=== PATIENT | male | born 1970 ===

== ENCOUNTER 2023-08-14 08:28 | Inpatient (IN) | payer OTHER, SELFPAY ==
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
[2023-08-14 09:42] VITALS: BP 127/84; PULSE 69; RESP 14; TEMP 36.3; O2SAT 97
[2023-08-14] MEDS: Gabapentin 600 MG TABLET PO ×3 (09:48→22:04)
[2023-08-14] MEDS: diazePAM 5 MG TABLET PO (09:49)
[2023-08-14] MEDS: Thiamine HCL 100 MG TABLET PO (09:49)
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
[2023-08-14 12:56] VITALS: BMI 28.7
[2023-08-14] MEDS: DULoxetine HCl 20 MG CAPSULE.DR PO (13:56)
[2023-08-14] MEDS: Omeprazole 20 MG CAPSULE.DR PO (13:56)
[2023-08-14] MEDS: TiZANidine HCL 4 MG TABLET 2 MG PO (15:14)
[2023-08-14] MEDS: Acamprosate Calcium 333 MG TABLET.DR 666 MG PO ×2 (15:14→22:03)
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
[2023-08-14 18:00] VITALS: BP 142/65; PULSE 71; TEMP 36.3; O2SAT 98
[2023-08-14] MEDS: traZODone HCL 100 MG TABLET PO (22:04)
[2023-08-15] MEDS: Omeprazole 20 MG CAPSULE.DR PO (05:48)
[2023-08-15 07:00] VITALS: BMI 28.6
[2023-08-15 08:10] VITALS: BP 129/75; PULSE 67; RESP 16; TEMP 36.6; O2SAT 99
[2023-08-15] MEDS: Acamprosate Calcium 333 MG TABLET.DR 666 MG PO ×3 (08:13→21:47)
[2023-08-15] MEDS: Thiamine HCL 100 MG TABLET PO (08:13)
[2023-08-15] MEDS: Gabapentin 600 MG TABLET PO ×3 (08:13→21:47)
[2023-08-15] MEDS: DULoxetine HCl 20 MG CAPSULE.DR PO (08:14)
[2023-08-15] MEDS: diazePAM 5 MG TABLET PO ×2 (08:19→13:31)
[2023-08-15] MEDS: hydrOXYzine HCL 25 MG TABLET PO ×2 (08:23→19:35)
[2023-08-15 08:53] LABS: Estimated Average Glucose 97 mg/dL
[2023-08-15 09:11] LABS: Alanine Aminotransferase 27 U/L (0-40); Albumin Level 4.4 g/dL (3.5-5.0); Alkaline Phosphatase 34 U/L (39-117); Anion Gap 14 (12-20); Aspartate Amino Transferase 21 U/L (5-37); Bilirubin Total 0.2 mg/dL (0.0-1.0); Blood Urea Nitrogen 20 mg/dL (9-16); Calcium 9.7 mg/dL (8.4-10.2); Carbon Dioxide 26 mmol/L (22-29); Chloride 103 mmol/L (96-108); Cholesterol 206 mg/dL (<200); Creatinine Clr Calc Pharmacy 97.1; Estimated Glomerular Filt Rate > 60; Glucose Fasting 82 mg/dL (60-99); HDL Cholesterol 52 mg/dL (>40); Potassium 4.3 mmol/L (3.3-5.1); Sodium 139 mmol/L (135-145); Total Protein 7.8 g/dL (6.5-8.0); Triglycerides 472 mg/dL (<150)
[2023-08-15 09:27] LABS: Thyroid Stimulating Hormone 2.37 uIU/mL (0.32-4.0)
[2023-08-15 09:36] LABS: Folate 10.2 ng/mL (> or = 4.0)
[2023-08-15 15:05] LABS: Vitamin B12 479 pg/mL (200-900)
--- NOTE | 2023-08-15 15:47 | HO.PSYCHPN ---
Subjective Subjective Date of Service: 08/15/23 Reason For Visit: SI Subjective Notes: Conditional Voluntary Interim History: Pt reports he had a great night, slept like a rock. He reports having much needed rest now that he has been staying in a tent. He also reports less pain related to neuropathy. He reports mood is better. He reports he is open to go to [facility] for recovery. No signs of alcohol withdrawal, VS stable. Fully oriented. Review of Systems Review of Systems Intermittent left sided abdominal pain Chronic knee and lower back pain No chest pain/pressure, palpitations Denies shortness of breath No fever, chills, nausea, vomiting, diarrhea Mental Status Exam Mental Status Exam Narrative: Appearance: wearing hospital gown, fair hygiene, in NAD Behavior: cooperative Psychomotor: no agitation or retardation noted Speech: clear, normal rate/rhythm/volume, spontaneous TP: linear TC: feeling better Mood: Affect: congruent, brightens at times SI:passive HI: none VH/AH: none Delusions: none Insight/judgment: fair x 2 Memory/cog: alert, oriented x 3. grossly intact to conversational testing. Diagnostics Vital Signs (24Hr): Vital Signs - 24 hr 08/14/23 18:00 08/15/23 08:10 Temperature 97.4 F 97.9 F Pulse Rate 71 67 Respiratory Rate 16 Blood Pressure 142/65 H 129/75 Pulse Oximetry 98 99 Oxygen Delivery Method Room Air BMI result Body Mass Index 28.6 Labs 08/15/23 08:09 Labs: Laboratory Results - last 48 hr 08/15/23 08:09 Sodium 139 Potassium 4.3 Chloride 103 Carbon Dioxide 26 Anion Gap 14 BUN 20 H Creatinine 1.03 Estim Creat Clear Calc 97.1 Estimated GFR > 60 Fasting Glucose 82 Estimat Average Glucose 97 Hemoglobin A1c % 5.0 Calcium 9.7 Total Bilirubin 0.2 AST 21 ALT 27 Alkaline Phosphatase 34 L Total Protein 7.8 Albumin 4.4 Triglycerides 472 H Cholesterol 206 H LDL Cholesterol, Calc TNP HDL Cholesterol 52 Vitamin B12 479 Folate 10.2 TSH 2.37 Medications Medications Current Medications Acamprosate (Acamprosate Calcium 333 Mg Tablet.) 666 mg PO TID [facility] Last Admin: 08/15/23 14:52 Dose: 666 mg Acetaminophen (Acetaminophen 325 Mg Tablet) 650 mg PO Q6H PRN PRN Reason: Headache/Pain Mild Scale (1-3) Al Hydroxide/Mg Hydroxide (Magnesium Hydrox/Alum Hydrox 30 Ml Oral.Susp) 30 ml PO Q6H PRN PRN Reason: Heartburn/Nausea Albuterol Sulfate (Albuterol Sulfate 90 Mcg 8 Gm Inhaler) 2 puff INHALE RQ6H PRN PRN Reason: Shortness of Breath/Wheezing Capsaicin (Capsaicin 0.025% Cream 60 Gm Tube) 1 appl TOPICAL QID PRN; Protocol PRN Reason: Pain, Moderate(Pain Scale 4-6) Diazepam (Diazepam 5 Mg Tablet) 5 mg PO Q4H PRN PRN Reason: ciwa 7-12 Last Admin: 08/15/23 13:31 Dose: 5 mg Diazepam (Diazepam 5 Mg Tablet) 10 mg PO Q4H PRN PRN Reason: ciwa 13-17 Diazepam (Diazepam 5 Mg Tablet) 15 mg PO Q4H PRN PRN Reason: ciwa >17, call Duloxetine HCl (Duloxetine Hcl 20 Mg Capsule.) 20 mg PO DAILY [facility] Last Admin: 08/15/23 08:14 Dose: 20 mg Gabapentin (Gabapentin 600 Mg Tablet) 600 mg PO TID [facility] Last Admin: 08/15/23 14:52 Dose: 600 mg Hydroxyzine HCl (Hydroxyzine Hcl 25 Mg Tablet) 25 mg PO Q6H PRN PRN Reason: Anxiety Last Admin: 08/15/23 08:23 Dose: 25 mg Lidocaine (Lidocaine 4 % Patch Adh..Patch) 1 patch TRANSDERMA DAILY [facility]; Protocol Last Admin: 08/15/23 13:45 Dose: Not Given Magnesium Hydroxide (Milk Of Magnesia 30 Ml Oral.Susp) 30 ml PO DAILY PRN PRN Reason: Constipation Nicotine (Nicotine 14 Mg Patch.Td24) 14 mg TRANSDERMA DAILY PRN PRN Reason: nicotine cravings Nicotine Polacrilex (Nicotine Polacrilex 2 Mg Gum) 2 mg BUCCAL Q2H PRN PRN Reason: Nicotine Cravings Omeprazole (Omeprazole 20 Mg Capsule.) 20 mg PO DAILY@0700 [facility] Last Admin: 08/15/23 05:48 Dose: 20 mg Thiamine HCl (Thiamine Hcl 100 Mg Tablet) 100 mg PO DAILY [facility] Last Admin: 08/15/23 08:13 Dose: 100 mg Tizanidine HCl (Tizanidine Hcl 4 Mg Tablet) 2 mg PO Q12H PRN PRN Reason: muscle spasm Last Admin: 08/14/23 15:14 Dose: 2 mg Trazodone HCl (Trazodone Hcl 50 Mg Tablet) 50 mg PO BEDTIME PRN PRN Reason: Insomnia Trazodone HCl (Trazodone Hcl 100 Mg Tablet) 100 mg PO BEDTIME [facility] Last Admin: 08/14/23 22:04 Dose: 100 mg Allergies Allergies Allergy/AdvReac Type Severity Reaction Status Date / Time No Known Allergies Allergy Verified 08/14/23 09:26 Assessment & Plan Assessment & Plan (1) MDD (major depressive disorder), recurrent episode, moderate: Status: Acute Code(s): F33.1 - Major depressive disorder, recurrent, moderate (2) Alcohol use disorder, moderate, dependence: Status: Acute Code(s): F10.20 - Alcohol dependence, uncomplicated Plan Mr. Metzger is a 52 year-old male w/ hx of MDD, alcohol use disorder exacerbated by multiple psychosocial stressors including lack of stable housing and financial stress. PLAN 08/15 will continue increasing cymbalta for depression and may have some neuropathic pain relief. Increase cymbalta to 30mg po daily. start naltrexone 50mg po daily tomorrow as well to decrease alcohol use. CIWA score today 11, 5. Will continue ciwa for now and reassess. Reason for continued inpatient stay Substantial Risk for: harm to self Time Spent With Patient Time: Total time managing care of this patient today ____ minutes.
[2023-08-15 19:55] VITALS: BP 140/75; PULSE 77; RESP 15; TEMP 36.7; O2SAT 99
[2023-08-15] MEDS: traZODone HCL 100 MG TABLET PO (21:47)
[2023-08-15] MEDS: TiZANidine HCL 4 MG TABLET 2 MG PO (21:47)
[2023-08-16] MEDS: Acetaminophen 325 MG TABLET 650 MG PO ×4 (03:51→21:05)
[2023-08-16] MEDS: Capsaicin 0.025% Cream 60 GM TUBE 1 APPL TOPICAL ×2 (03:53→11:38)
[2023-08-16] MEDS: hydrOXYzine HCL 25 MG TABLET PO ×3 (03:56→21:06)
[2023-08-16] MEDS: Omeprazole 20 MG CAPSULE.DR PO (06:27)
[2023-08-16 07:00] VITALS: BP 121/75; PULSE 76; RESP 16; TEMP 36.3; O2SAT 97
[2023-08-16] MEDS: DULoxetine HCl 30 MG CAPSULE.DR PO (08:48)
[2023-08-16] MEDS: Acamprosate Calcium 333 MG TABLET.DR 666 MG PO ×3 (08:48→21:05)
[2023-08-16] MEDS: Gabapentin 600 MG TABLET PO (08:48)
[2023-08-16] MEDS: Naltrexone HCl 50 MG TABLET PO (08:48)
[2023-08-16] MEDS: Thiamine HCL 100 MG TABLET PO (08:49)
--- NOTE | 2023-08-16 09:43 | P.PNPSI_ITS ---
Subjective Subjective Date of Service: 08/16/23 Reason For Visit: SI Subjective Notes: Conditional Voluntary Interim History: Pt reports he is losing hope due to uncertainty of getting into a [facility] program. Pt slept throught the night. He reports more pain today, although yesterday he was reporting much relief with current medications. We discussed re-starting meloxican- although consider interaction with aspirin and increase risk for bleeding. We also discussed increasing gabapentin to 800mg po TID. Continue titration of cymbalta. He denies SI and presents as future oriented but at times may report conditional suicidality to finding place to go. Pt has been visible on the unit, attends assigned groups. No behavioral concerns. Review of Systems Review of Systems Intermittent left sided abdominal pain Chronic knee and lower back pain No chest pain/pressure, palpitations Denies shortness of breath No fever, chills, nausea, vomiting, diarrhea Mental Status Exam Mental Status Exam Narrative: Appearance: wearing hospital gown, fair hygiene, in NAD Behavior: cooperative Psychomotor: no agitation or retardation noted Speech: clear, normal rate/rhythm/volume, spontaneous TP: linear TC: feeling better Mood: Affect: congruent, brightens at times SI:passive HI: none VH/AH: none Delusions: none Insight/judgment: fair x 2 Memory/cog: alert, oriented x 3. grossly intact to conversational testing. Diagnostics Vital Signs (24Hr): Vital Signs - 24 hr 08/15/23 19:55 08/16/23 07:00 Temperature 98.0 F 97.4 F Pulse Rate 77 76 Respiratory Rate 15 16 Blood Pressure 140/75 H 121/75 Pulse Oximetry 99 97 Oxygen Delivery Method Room Air Room Air BMI result Body Mass Index 28.6 Labs 08/15/23 08:09 Labs: Laboratory Results - last 48 hr 08/15/23 08:09 Sodium 139 Potassium 4.3 Chloride 103 Carbon Dioxide 26 Anion Gap 14 BUN 20 H Creatinine 1.03 Estim Creat Clear Calc 97.1 Estimated GFR > 60 Fasting Glucose 82 Estimat Average Glucose 97 Hemoglobin A1c % 5.0 Calcium 9.7 Total Bilirubin 0.2 AST 21 ALT 27 Alkaline Phosphatase 34 L Total Protein 7.8 Albumin 4.4 Triglycerides 472 H Cholesterol 206 H LDL Cholesterol, Calc TNP HDL Cholesterol 52 Vitamin B12 479 Folate 10.2 TSH 2.37 Medications Medications Current Medications Acamprosate (Acamprosate Calcium 333 Mg Tablet.) 666 mg PO TID [facility] Last Admin: 08/16/23 08:48 Dose: 666 mg Acetaminophen (Acetaminophen 325 Mg Tablet) 650 mg PO Q6H PRN PRN Reason: Headache/Pain Mild Scale (1-3) Last Admin: 08/16/23 03:51 Dose: 650 mg Al Hydroxide/Mg Hydroxide (Magnesium Hydrox/Alum Hydrox 30 Ml Oral.Susp) 30 ml PO Q6H PRN PRN Reason: Heartburn/Nausea Albuterol Sulfate (Albuterol Sulfate 90 Mcg 8 Gm Inhaler) 2 puff INHALE RQ6H PRN PRN Reason: Shortness of Breath/Wheezing Capsaicin (Capsaicin 0.025% Cream 60 Gm Tube) 1 appl TOPICAL QID PRN; Protocol PRN Reason: Pain, Moderate(Pain Scale 4-6) Last Admin: 08/16/23 03:53 Dose: 1 appl Diazepam (Diazepam 5 Mg Tablet) 5 mg PO Q4H PRN PRN Reason: ciwa 7-12 Last Admin: 08/15/23 13:31 Dose: 5 mg Diazepam (Diazepam 5 Mg Tablet) 10 mg PO Q4H PRN PRN Reason: ciwa 13-17 Diazepam (Diazepam 5 Mg Tablet) 15 mg PO Q4H PRN PRN Reason: ciwa >17, call Duloxetine HCl (Duloxetine Hcl 30 Mg Capsule.) 30 mg PO DAILY [facility] Last Admin: 08/16/23 08:48 Dose: 30 mg Gabapentin (Gabapentin 600 Mg Tablet) 600 mg PO TID [facility] Last Admin: 08/16/23 08:48 Dose: 600 mg Hydroxyzine HCl (Hydroxyzine Hcl 25 Mg Tablet) 25 mg PO Q6H PRN PRN Reason: Anxiety Last Admin: 08/16/23 03:56 Dose: 25 mg Lidocaine (Lidocaine 4 % Patch Adh..Patch) 1 patch TRANSDERMA DAILY [facility]; Protocol Last Admin: 08/15/23 13:45 Dose: Not Given Magnesium Hydroxide (Milk Of Magnesia 30 Ml Oral.Susp) 30 ml PO DAILY PRN PRN Reason: Constipation Naltrexone HCl (Naltrexone Hcl 50 Mg Tablet) 50 mg PO DAILY [facility] Last Admin: 08/16/23 08:48 Dose: 50 mg Nicotine (Nicotine 14 Mg Patch.Td24) 14 mg TRANSDERMA DAILY PRN PRN Reason: nicotine cravings Nicotine Polacrilex (Nicotine Polacrilex 2 Mg Gum) 2 mg BUCCAL Q2H PRN PRN Reason: Nicotine Cravings Omeprazole (Omeprazole 20 Mg Capsule.Dr) 20 mg PO DAILY@0700 [facility] Last Admin: 08/16/23 06:27 Dose: 20 mg Thiamine HCl (Thiamine Hcl 100 Mg Tablet) 100 mg PO DAILY [facility] Last Admin: 08/16/23 08:49 Dose: 100 mg Tizanidine HCl (Tizanidine Hcl 4 Mg Tablet) 2 mg PO Q12H PRN PRN Reason: muscle spasm Last Admin: 08/15/23 21:47 Dose: 2 mg Trazodone HCl (Trazodone Hcl 50 Mg Tablet) 50 mg PO BEDTIME PRN PRN Reason: Insomnia Trazodone HCl (Trazodone Hcl 100 Mg Tablet) 100 mg PO BEDTIME [facility] Last Admin: 08/15/23 21:47 Dose: 100 mg Allergies Allergies Allergy/AdvReac Type Severity Reaction Status Date / Time No Known Allergies Allergy Verified 08/14/23 09:26 Assessment & Plan Assessment & Plan (1) MDD (major depressive disorder), recurrent episode, moderate: Status: Acute Code(s): F33.1 - Major depressive disorder, recurrent, moderate (2) Alcohol use disorder, moderate, dependence: Status: Acute Code(s): F10.20 - Alcohol dependence, uncomplicated Plan Mr. Metzger is a 52 year-old male w/ hx of MDD, alcohol use disorder exacerbated by multiple psychosocial stressors including lack of stable housing and financial stress. PLAN 08/15 will continue increasing cymbalta for depression and may have some neuropathic pain relief. Increase cymbalta to 30mg po daily. start naltrexone 50mg po daily tomorrow as well to decrease alcohol use. CIWA score today 11, 5. Will continue ciwa for now and reassess. 08/16 increase gabapetin to 800mg po TID. increase cymbalta to 60mg po daily. start meloxican 100mg po BID. Reason for continued inpatient stay Substantial Risk for: harm to self Time Spent With Patient Time: Total time managing care of this patient today ____ minutes.
[2023-08-16] MEDS: Lidocaine 4 % Patch ADH..PATCH 1 PATCH TRANSDERMA (11:37)
[2023-08-16] MEDS: Celecoxib 100 MG CAPSULE PO ×2 (11:38→21:05)
[2023-08-16] MEDS: Gabapentin 400 MG CAPSULE 800 MG PO ×2 (16:37→21:06)
[2023-08-16 20:40] VITALS: BP 133/82; PULSE 82; RESP 16; TEMP 36.3; O2SAT 98
[2023-08-16] MEDS: TiZANidine HCL 4 MG TABLET 2 MG PO (21:06)
[2023-08-16] MEDS: traZODone HCL 100 MG TABLET PO (21:11)
[2023-08-17] MEDS: Omeprazole 20 MG CAPSULE.DR PO (06:31)
[2023-08-17] MEDS: Acetaminophen 325 MG TABLET 650 MG PO ×3 (08:03→21:33)
[2023-08-17] MEDS: Thiamine HCL 100 MG TABLET PO (08:03)
[2023-08-17] MEDS: Acamprosate Calcium 333 MG TABLET.DR 666 MG PO ×3 (08:03→21:32)
[2023-08-17] MEDS: DULoxetine HCl 60 MG CAPSULE.DR PO (08:03)
[2023-08-17] MEDS: Gabapentin 400 MG CAPSULE 800 MG PO ×3 (08:03→21:32)
[2023-08-17] MEDS: Celecoxib 100 MG CAPSULE PO ×2 (08:04→21:32)
[2023-08-17] MEDS: Naltrexone HCl 50 MG TABLET PO (08:04)
[2023-08-17 08:31] VITALS: BP 128/73; PULSE 72; RESP 20; TEMP 36.3; O2SAT 97
[2023-08-17] MEDS: Lidocaine 4 % Patch ADH..PATCH 1 PATCH TRANSDERMA (09:48)
[2023-08-17] MEDS: Capsaicin 0.025% Cream 60 GM TUBE 1 APPL TOPICAL (11:20)
[2023-08-17] MEDS: hydrOXYzine HCL 25 MG TABLET PO (14:55)
[2023-08-17 18:51] VITALS: BP 129/78; PULSE 79
[2023-08-17] MEDS: traZODone HCL 100 MG TABLET PO (21:34)
[2023-08-17] MEDS: TiZANidine HCL 4 MG TABLET 2 MG PO (21:34)
--- NOTE | 2023-08-17 22:36 | HO.PSYCHPN ---
Subjective Subjective Date of Service: 08/17/23 Reason For Visit: SI Subjective Notes: Conditional Voluntary Interim History: I'm alright Patient presents as blunted, guarded but appropriate. No behavioral issues. Mostly keeps to himself. Per staff has been going to groups. Pt says he is hoping for [facility] and says SW will be calling to check on status at [facility] on Saturday. Reports depression persists and asking if his doctor had increased the dose of duloxetine to 60 mg (which he had done). Denies any adverse effects from medications, is med compliant. Denies h/h/SI not lately . No HI, AH, VH on inquiry. MSE:? Alert, oriented, in no acute distress. Ambulates with walker. Casually dressed. Calm, cooperative, forthcoming. Eye contact. Mood depressed, affect constricted. Normal speech. No evidence of thought disorder. Thought content relevant to stressors. No SI or HI on inquiry. No evidence of harley or psychosis. Cognition grossly intact. Sensorium clear. Insight and judgment fair. Medication Compliance: Yes Side effects from medications: No Diagnostics Vital Signs (24Hr): Vital Signs - 24 hr 08/17/23 08:31 08/17/23 18:51 Temperature 97.3 F Pulse Rate 72 79 Respiratory Rate 20 Blood Pressure 128/73 129/78 Pulse Oximetry 97 Oxygen Delivery Method Room Air BMI result Body Mass Index 28.6 Labs 08/15/23 08:09 Medications Medications Current Medications Acamprosate (Acamprosate Calcium 333 Mg Tablet.) 666 mg PO TID [facility] Last Admin: 08/17/23 21:32 Dose: 666 mg Acetaminophen (Acetaminophen 325 Mg Tablet) 650 mg PO TID [facility] Last Admin: 08/17/23 21:33 Dose: 650 mg Al Hydroxide/Mg Hydroxide (Magnesium Hydrox/Alum Hydrox 30 Ml Oral.Susp) 30 ml PO Q6H PRN PRN Reason: Heartburn/Nausea Albuterol Sulfate (Albuterol Sulfate 90 Mcg 8 Gm Inhaler) 2 puff INHALE RQ6H PRN PRN Reason: Shortness of Breath/Wheezing Capsaicin (Capsaicin 0.025% Cream 60 Gm Tube) 1 appl TOPICAL QID PRN; Protocol PRN Reason: Pain, Moderate(Pain Scale 4-6) Last Admin: 08/17/23 11:20 Dose: 1 appl Celecoxib (Celecoxib 100 Mg Capsule) 100 mg PO BID [facility] Last Admin: 08/17/23 21:32 Dose: 100 mg Duloxetine HCl (Duloxetine Hcl 60 Mg Capsule.Dr) 60 mg PO DAILY [facility] Last Admin: 08/17/23 08:03 Dose: 60 mg Gabapentin (Gabapentin 400 Mg Capsule) 800 mg PO TID [facility] Last Admin: 08/17/23 21:32 Dose: 800 mg Hydroxyzine HCl (Hydroxyzine Hcl 25 Mg Tablet) 25 mg PO Q6H PRN PRN Reason: Anxiety Last Admin: 08/17/23 14:55 Dose: 25 mg Lidocaine (Lidocaine 4 % Patch Adh..Patch) 1 patch TRANSDERMA DAILY [facility]; Protocol Last Admin: 08/17/23 09:48 Dose: 1 patch Magnesium Hydroxide (Milk Of Magnesia 30 Ml Oral.Susp) 30 ml PO DAILY PRN PRN Reason: Constipation Naltrexone HCl (Naltrexone Hcl 50 Mg Tablet) 50 mg PO DAILY [facility] Last Admin: 08/17/23 08:04 Dose: 50 mg Nicotine (Nicotine 14 Mg Patch.Td24) 14 mg TRANSDERMA DAILY PRN PRN Reason: nicotine cravings Nicotine Polacrilex (Nicotine Polacrilex 2 Mg Gum) 2 mg BUCCAL Q2H PRN PRN Reason: Nicotine Cravings Omeprazole (Omeprazole 20 Mg Capsule.Dr) 20 mg PO DAILY@0700 [facility] Last Admin: 08/17/23 06:31 Dose: 20 mg Thiamine HCl (Thiamine Hcl 100 Mg Tablet) 100 mg PO DAILY [facility] Last Admin: 08/17/23 08:03 Dose: 100 mg Tizanidine HCl (Tizanidine Hcl 4 Mg Tablet) 2 mg PO Q12H PRN PRN Reason: muscle spasm Last Admin: 08/17/23 21:34 Dose: 2 mg Trazodone HCl (Trazodone Hcl 50 Mg Tablet) 50 mg PO BEDTIME PRN PRN Reason: Insomnia Trazodone HCl (Trazodone Hcl 100 Mg Tablet) 100 mg PO BEDTIME [facility] Last Admin: 08/17/23 21:34 Dose: 100 mg Allergies Allergies Allergy/AdvReac Type Severity Reaction Status Date / Time No Known Allergies Allergy Verified 08/14/23 09:26 Assessment & Plan Assessment & Plan (1) MDD (major depressive disorder), recurrent episode, moderate: Status: Acute Code(s): F33.1 - Major depressive disorder, recurrent, moderate (2) Alcohol use disorder, moderate, dependence: Status: Acute Code(s): F10.20 - Alcohol dependence, uncomplicated Plan Mr. Metzger is a 52 year-old male w/ hx of MDD, alcohol use disorder exacerbated by multiple psychosocial stressors including lack of stable housing and financial stress. PLAN 08/15 will continue increasing cymbalta for depression and may have some neuropathic pain relief. Increase cymbalta to 30mg po daily. start naltrexone 50mg po daily tomorrow as well to decrease alcohol use. CIWA score today 11, 5. Will continue ciwa for now and reassess. 08/16 increase gabapetin to 800mg po TID. increase cymbalta to 60mg po daily. start meloxican 100mg po BID. 08/17: increase hydroxyzine to 50 mg q 6 hr Reason for continued inpatient stay Substantial Risk for: inability to function, rapid decompensation and med/psych decompensation Time Spent With Patient Time: Total time managing care of this patient today ____ minutes.
[2023-08-18] MEDS: Omeprazole 20 MG CAPSULE.DR PO (06:28)
[2023-08-18] MEDS: Thiamine HCL 100 MG TABLET PO (07:51)
[2023-08-18] MEDS: Acamprosate Calcium 333 MG TABLET.DR 666 MG PO ×3 (07:51→20:21)
[2023-08-18] MEDS: DULoxetine HCl 60 MG CAPSULE.DR PO (07:51)
[2023-08-18] MEDS: Gabapentin 400 MG CAPSULE 800 MG PO ×3 (07:51→20:21)
[2023-08-18] MEDS: Acetaminophen 325 MG TABLET 650 MG PO ×3 (07:51→20:20)
[2023-08-18] MEDS: Celecoxib 100 MG CAPSULE PO ×2 (07:51→20:22)
[2023-08-18] MEDS: Naltrexone HCl 50 MG TABLET PO (07:52)
[2023-08-18 08:35] VITALS: BP 117/72; PULSE 71; RESP 16; TEMP 35.9; O2SAT 98
[2023-08-18] MEDS: hydrOXYzine HCL 50 MG TABLET PO (10:09)
[2023-08-18] MEDS: Lidocaine 4 % Patch ADH..PATCH 1 PATCH TRANSDERMA (12:27)
[2023-08-18] MEDS: Capsaicin 0.025% Cream 60 GM TUBE 1 APPL TOPICAL (14:31)
[2023-08-18 20:00] VITALS: BP 130/75; PULSE 73; RESP 18; TEMP 36.6; O2SAT 98
[2023-08-18] MEDS: Prazosin HCL 1 MG CAPSULE PO (20:22)
--- NOTE | 2023-08-18 22:36 | P.PNPSI_ITS ---
Subjective Subjective Date of Service: 08/18/23 Reason For Visit: SI Subjective Notes: Conditional Voluntary Interim History: okay Patient found in tv room. Has been watching football all day. Mood less depressed but still low. Anxiety is high. PRN 50 mg hydroxyzine better than 25 mg but only lasts a short time. Having a lot of anxiety, including physical anxiety. Sleep is disrupted, he reports nightmares and flashbacks. Asking for 100 mg hydroxyzine, but agreeable to switching 50 mg hydroxyzine from q 6 hrs to QID dosing. He is agreeable to trial of prazosin BID to target somatic anxiety during day and nightmares/sleep at night. Duloxetine at 60 mg after quick titration, started 2 days ago. Will hold off further titration until later. Asking about pain medications for chronic back and hip pain although acknowledges TID gabapentin has been helpful thus far. Denies SI, HI, AH, VH. ___ Sat: I'm alright Patient presents as blunted, guarded but appropriate. No behavioral issues. Mostly keeps to himself. Per staff has been going to groups. Pt says he is hoping for [facility] and says SW will be calling to check on status at [facility] on Saturday. Reports depression persists and asking if his doctor had increased the dose of duloxetine to 60 mg (which he had done). Denies any adverse effects from medications, is med compliant. Denies h/h/SI not lately . No HI, AH, VH on inquiry. MSE:? Alert, oriented, in no acute distress. Ambulates with walker. Casually dressed. Calm, cooperative, forthcoming. Eye contact. Mood depressed, affect constricted. Normal speech. No evidence of thought disorder. Thought content relevant to stressors. No SI or HI on inquiry. No evidence of harley or psychosis. Cognition grossly intact. Sensorium clear. Insight and judgment fair. Mental Status Exam Mental Status Exam Narrative: Appearance: wearing hospital gown, fair hygiene, in NAD Behavior: cooperative Psychomotor: no agitation or retardation noted Speech: clear, normal rate/rhythm/volume, spontaneous TP: linear TC: feeling better Mood: Affect: congruent, brightens at times SI:passive HI: none VH/AH: none Delusions: none Insight/judgment: fair x 2 Memory/cog: alert, oriented x 3. grossly intact to conversational testing. Diagnostics Vital Signs (24Hr): Vital Signs - 24 hr 08/18/23 08:35 08/18/23 20:00 Temperature 96.7 F L 97.8 F Pulse Rate 71 73 Respiratory Rate 16 18 Blood Pressure 117/72 130/75 Pulse Oximetry 98 98 Oxygen Delivery Method Room Air Room Air BMI result Body Mass Index 28.6 Labs 08/15/23 08:09 Medications Medications Current Medications Acamprosate (Acamprosate Calcium 333 Mg Tablet.) 666 mg PO TID [facility] Last Admin: 08/18/23 20:21 Dose: 666 mg Acetaminophen (Acetaminophen 325 Mg Tablet) 650 mg PO TID [facility] Last Admin: 08/18/23 20:20 Dose: 650 mg Al Hydroxide/Mg Hydroxide (Magnesium Hydrox/Alum Hydrox 30 Ml Oral.Susp) 30 ml PO Q6H PRN PRN Reason: Heartburn/Nausea Albuterol Sulfate (Albuterol Sulfate 90 Mcg 8 Gm Inhaler) 2 puff INHALE RQ6H PRN PRN Reason: Shortness of Breath/Wheezing Capsaicin (Capsaicin 0.025% Cream 60 Gm Tube) 1 appl TOPICAL QID PRN; Protocol PRN Reason: Pain, Moderate(Pain Scale 4-6) Last Admin: 08/18/23 14:31 Dose: 1 appl Celecoxib (Celecoxib 100 Mg Capsule) 100 mg PO BID [facility] Last Admin: 08/18/23 20:22 Dose: 100 mg Duloxetine HCl (Duloxetine Hcl 60 Mg Capsule.) 60 mg PO DAILY [facility] Last Admin: 08/18/23 07:51 Dose: 60 mg Gabapentin (Gabapentin 400 Mg Capsule) 800 mg PO TID [facility] Last Admin: 08/18/23 20:21 Dose: 800 mg Hydroxyzine HCl (Hydroxyzine Hcl 50 Mg Tablet) 50 mg PO QID PRN PRN Reason: Anxiety Lidocaine (Lidocaine 4 % Patch Adh..Patch) 1 patch TRANSDERMA DAILY [facility]; Protocol Last Admin: 08/18/23 12:27 Dose: 1 patch Magnesium Hydroxide (Milk Of Magnesia 30 Ml Oral.Susp) 30 ml PO DAILY PRN PRN Reason: Constipation Naltrexone HCl (Naltrexone Hcl 50 Mg Tablet) 50 mg PO DAILY [facility] Last Admin: 08/18/23 07:52 Dose: 50 mg Nicotine (Nicotine 14 Mg Patch.Td24) 14 mg TRANSDERMA DAILY PRN PRN Reason: nicotine cravings Nicotine Polacrilex (Nicotine Polacrilex 2 Mg Gum) 2 mg BUCCAL Q2H PRN PRN Reason: Nicotine Cravings Omeprazole (Omeprazole 20 Mg Capsule.Dr) 20 mg PO DAILY@0700 [facility] Last Admin: 08/18/23 06:28 Dose: 20 mg Prazosin HCl (Prazosin Hcl 1 Mg Capsule) 1 mg PO BID [facility]; Protocol Last Admin: 08/18/23 20:22 Dose: 1 mg Thiamine HCl (Thiamine Hcl 100 Mg Tablet) 100 mg PO DAILY [facility] Last Admin: 08/18/23 07:51 Dose: 100 mg Tizanidine HCl (Tizanidine Hcl 4 Mg Tablet) 2 mg PO Q12H PRN PRN Reason: muscle spasm Last Admin: 08/17/23 21:34 Dose: 2 mg Trazodone HCl (Trazodone Hcl 50 Mg Tablet) 50 mg PO BEDTIME PRN PRN Reason: Insomnia Trazodone HCl (Trazodone Hcl 100 Mg Tablet) 100 mg PO BEDTIME [facility] Last Admin: 08/17/23 21:34 Dose: 100 mg Allergies Allergies Allergy/AdvReac Type Severity Reaction Status Date / Time No Known Allergies Allergy Verified 08/14/23 09:26 Assessment & Plan Assessment & Plan (1) MDD (major depressive disorder), recurrent episode, moderate: Status: Acute Code(s): F33.1 - Major depressive disorder, recurrent, moderate (2) Alcohol use disorder, moderate, dependence: Status: Acute Code(s): F10.20 - Alcohol dependence, uncomplicated Plan Mr. Metzger is a 52 year-old male w/ hx of MDD, alcohol use disorder exacerbated by multiple psychosocial stressors including lack of stable housing and financial stress. PLAN 08/15 will continue increasing cymbalta for depression and may have some neuropathic pain relief. Increase cymbalta to 30mg po daily. start naltrexone 50mg po daily tomorrow as well to decrease alcohol use. CIWA score today 11, 5. Will continue ciwa for now and reassess. 08/16 increase gabapetin to 800mg po TID. increase cymbalta to 60mg po daily. start meloxican 100mg po BID. 08/18: start prazosin 1 mg BID change PRN hydroxyzine 50 mg to QID dosing Patient educated on: diagnosis and medication risk/benefits Informed Consent: understands Reason for continued inpatient stay Substantial Risk for: inability to function, rapid decompensation and med/psych decompensation Time Spent With Patient Time: Total time managing care of this patient today ____ minutes.
[2023-08-18] MEDS: traZODone HCL 100 MG TABLET PO (22:58)
[2023-08-19 06:00] VITALS: BP 121/72; PULSE 79; RESP 18; TEMP 36.3; O2SAT 97
[2023-08-19] MEDS: Omeprazole 20 MG CAPSULE.DR PO (06:50)
[2023-08-19] MEDS: Naltrexone HCl 50 MG TABLET PO (08:19)
[2023-08-19] MEDS: Acetaminophen 325 MG TABLET 650 MG PO ×3 (08:19→21:46)
[2023-08-19] MEDS: Acamprosate Calcium 333 MG TABLET.DR 666 MG PO ×3 (08:20→21:45)
[2023-08-19] MEDS: Prazosin HCL 1 MG CAPSULE PO ×3 (08:20→21:47)
[2023-08-19] MEDS: Gabapentin 400 MG CAPSULE 800 MG PO ×3 (08:21→21:46)
[2023-08-19] MEDS: Thiamine HCL 100 MG TABLET PO (08:21)
[2023-08-19] MEDS: Celecoxib 100 MG CAPSULE PO ×2 (08:21→21:47)
[2023-08-19] MEDS: DULoxetine HCl 60 MG CAPSULE.DR PO (08:22)
[2023-08-19] MEDS: Lidocaine 4 % Patch ADH..PATCH 1 PATCH TRANSDERMA (11:55)
[2023-08-19 14:54] VITALS: BP 119/65; PULSE 74; RESP 16; TEMP 36.2; O2SAT 97
[2023-08-19] MEDS: hydrOXYzine HCL 50 MG TABLET PO (18:58)
--- NOTE | 2023-08-19 20:52 | HO.PSYCHPN ---
Subjective Subjective Date of Service: 08/19/23 Reason For Visit: SI Interim History: [facility] [address] [place] [address] Psychiatric-Progress Note (In) Signed Patient: Ned Metzger cc: A little better, but I still got pain Patient seen walking on the milieu, with walker. Denies any acute issues or concerns. Reports sleeping comfortably last night, denies any nightmares. Was started on prazosin 1 mg last night. He continues on 1 mg prazosin this morning. He still feeling anxious today but says he can tell it has eased up a bit and is agreeing to increasing AM dose of prazosin to 2 mg. VS 121/72 and HR 79 this morning. Feels steady on feet, no adverse effects. Reports mood as better, still depressed but getting better. He continues on duloxetine at 60 mg/d for 3 days now, denies AE. He had had a headache and mental fogginess that is just clearing now, almost gone . Will hold off from further titration of duloxetine as it's still early, but would likely benefit from higher dose of duloxetine at some point later. He denies any hopelessness, SI, aggressive ideation or AVH. He is interested in getting SSI and was encourged to reconnect with his PCP and community therapist, and can speak with his SW/TC tomorrow who may offer further guidance or resources. Sun: okay Patient found in tv room. Has been watching football all day. Mood less depressed but still low. Anxiety is high. PRN 50 mg hydroxyzine better than 25 mg but only lasts a short time. Having a lot of anxiety, including physical anxiety. Sleep is disrupted, he reports nightmares and flashbacks. Asking for 100 mg hydroxyzine, but agreeable to switching 50 mg hydroxyzine from q 6 hrs to QID dosing. He is agreeable to trial of prazosin BID to target somatic anxiety during day and nightmares/sleep at night. Duloxetine at 60 mg after quick titration, started 2 days ago. Will hold off further titration until later. Asking about pain medications for chronic back and hip pain although acknowledges TID gabapentin has been helpful thus far. Denies SI, HI, AH, VH. Sat: I'm alright Patient presents as blunted, guarded but appropriate. No behavioral issues. Mostly keeps to himself. Per staff has been going to groups. Pt says he is hoping for [facility] and says SW will be calling to check on status at [facility] on Saturday. Reports depression persists and asking if his doctor had increased the dose of duloxetine to 60 mg (which he had done). Denies any adverse effects from medications, is med compliant. Denies h/h/SI not lately . No HI, AH, VH on inquiry. MSE:? Alert, oriented, in no acute distress. Ambulates with walker. Casually dressed. Calm, cooperative, forthcoming. Eye contact. Mood depressed, affect constricted. Normal speech. No evidence of thought disorder. Thought content relevant to stressors. No SI or HI on inquiry. No evidence of harley or psychosis. Cognition grossly intact. Sensorium clear. Insight and judgment fair. Diagnostics Vital Signs (24Hr): Vital Signs - 24 hr 08/19/23 06:00 08/19/23 14:54 Temperature 97.3 F 97.2 F Pulse Rate 79 74 Respiratory Rate 18 16 Blood Pressure 121/72 119/65 Pulse Oximetry 97 97 Oxygen Delivery Method Room Air Room Air BMI result Body Mass Index 28.6 Labs 08/15/23 08:09 Medications Medications Current Medications Acamprosate (Acamprosate Calcium 333 Mg Tablet.) 666 mg PO TID [facility] Last Admin: 08/19/23 14:56 Dose: 666 mg Acetaminophen (Acetaminophen 325 Mg Tablet) 650 mg PO TID [facility] Last Admin: 08/19/23 14:57 Dose: 650 mg Al Hydroxide/Mg Hydroxide (Magnesium Hydrox/Alum Hydrox 30 Ml Oral.Susp) 30 ml PO Q6H PRN PRN Reason: Heartburn/Nausea Albuterol Sulfate (Albuterol Sulfate 90 Mcg 8 Gm Inhaler) 2 puff INHALE RQ6H PRN PRN Reason: Shortness of Breath/Wheezing Capsaicin (Capsaicin 0.025% Cream 60 Gm Tube) 1 appl TOPICAL QID PRN; Protocol PRN Reason: Pain, Moderate(Pain Scale 4-6) Last Admin: 08/18/23 14:31 Dose: 1 appl Celecoxib (Celecoxib 100 Mg Capsule) 100 mg PO BID [facility] Last Admin: 08/19/23 08:21 Dose: 100 mg Duloxetine HCl (Duloxetine Hcl 60 Mg Capsule.Dr) 60 mg PO DAILY [facility] Last Admin: 08/19/23 08:22 Dose: 60 mg Gabapentin (Gabapentin 400 Mg Capsule) 800 mg PO TID [facility] Last Admin: 08/19/23 14:57 Dose: 800 mg Hydroxyzine HCl (Hydroxyzine Hcl 50 Mg Tablet) 50 mg PO QID PRN PRN Reason: Anxiety Last Admin: 08/19/23 18:58 Dose: 50 mg Lidocaine (Lidocaine 4 % Patch Adh..Patch) 1 patch TRANSDERMA DAILY [facility]; Protocol Last Admin: 08/19/23 11:55 Dose: 1 patch Magnesium Hydroxide (Milk Of Magnesia 30 Ml Oral.Susp) 30 ml PO DAILY PRN PRN Reason: Constipation Naltrexone HCl (Naltrexone Hcl 50 Mg Tablet) 50 mg PO DAILY [facility] Last Admin: 08/19/23 08:19 Dose: 50 mg Nicotine (Nicotine 14 Mg Patch.Td24) 14 mg TRANSDERMA DAILY PRN PRN Reason: nicotine cravings Nicotine Polacrilex (Nicotine Polacrilex 2 Mg Gum) 2 mg BUCCAL Q2H PRN PRN Reason: Nicotine Cravings Omeprazole (Omeprazole 20 Mg Capsule.Dr) 20 mg PO DAILY@0700 [facility] Last Admin: 08/19/23 06:50 Dose: 20 mg Prazosin HCl (Prazosin Hcl 1 Mg Capsule) 1 mg PO BEDTIME [facility]; Protocol Prazosin HCl (Prazosin Hcl 1 Mg Capsule) 2 mg PO DAILY [facility]; Protocol Thiamine HCl (Thiamine Hcl 100 Mg Tablet) 100 mg PO DAILY [facility] Last Admin: 08/19/23 08:21 Dose: 100 mg Tizanidine HCl (Tizanidine Hcl 4 Mg Tablet) 2 mg PO Q12H PRN PRN Reason: muscle spasm Last Admin: 08/17/23 21:34 Dose: 2 mg Trazodone HCl (Trazodone Hcl 50 Mg Tablet) 50 mg PO BEDTIME PRN PRN Reason: Insomnia Trazodone HCl (Trazodone Hcl 100 Mg Tablet) 100 mg PO BEDTIME [facility] Last Admin: 08/18/23 22:58 Dose: 100 mg Allergies Allergies Allergy/AdvReac Type Severity Reaction Status Date / Time No Known Allergies Allergy Verified 08/14/23 09:26 Assessment & Plan Assessment & Plan (1) MDD (major depressive disorder), recurrent episode, moderate: Status: Acute Code(s): F33.1 - Major depressive disorder, recurrent, moderate (2) Alcohol use disorder, moderate, dependence: Status: Acute Code(s): F10.20 - Alcohol dependence, uncomplicated Plan Mr. Metzger is a 52 year-old male w/ hx of MDD, alcohol use disorder exacerbated by multiple psychosocial stressors including lack of stable housing and financial stress. PLAN 08/15 will continue increasing cymbalta for depression and may have some neuropathic pain relief. Increase cymbalta to 30mg po daily. start naltrexone 50mg po daily tomorrow as well to decrease alcohol use. CIWA score today 11, 5. Will continue ciwa for now and reassess. 08/16 increase gabapetin to 800mg po TID. increase cymbalta to 60mg po daily. start meloxican 100mg po BID. 08/17: increase hydroxyzine to 50 mg q 6 hr Reason for continued inpatient stay Substantial Risk for: inability to function and med/psych decompensation Time Spent With Patient Time: Total time managing care of this patient today ____ minutes.
[2023-08-19] MEDS: Capsaicin 0.025% Cream 60 GM TUBE 1 APPL TOPICAL (21:44)
[2023-08-19 21:45] VITALS: BP 111/68; PULSE 88; RESP 18; TEMP 36.7; O2SAT 98
[2023-08-19] MEDS: traZODone HCL 100 MG TABLET PO (21:48)
--- NOTE | 2023-08-20 06:10 | PC.NURSE ---
Addendum entered by Melissa Tovar RN 08/20/23 06:15: patient hopeful that the social security benefits interviewer will find him placement Original Note: Ned has been isolating but visible throughout the night. he ia pleasant and cooperative upon approach. PRN capsaisin to bilateral knees with positive effect. patient is hopeful that the social security benefits interviewer will be able to find him plcement in a log term substance abuse program. he continues to endorse depression and anxiety but states that they are improving, he also continues to c/o racing thoughts, patient denies all other psych symptoms. monitor for safety, continue Plan of Care
[2023-08-20] MEDS: Omeprazole 20 MG CAPSULE.DR PO (07:04)
[2023-08-20 07:50] VITALS: BP 113/65; PULSE 78; RESP 18; TEMP 36.2; O2SAT 99
[2023-08-20] MEDS: Acamprosate Calcium 333 MG TABLET.DR 666 MG PO ×3 (08:57→21:55)
[2023-08-20] MEDS: Prazosin HCL 1 MG CAPSULE 2 MG PO (08:58)
[2023-08-20] MEDS: Thiamine HCL 100 MG TABLET PO (08:58)
[2023-08-20] MEDS: Naltrexone HCl 50 MG TABLET PO (08:58)
[2023-08-20] MEDS: Celecoxib 100 MG CAPSULE PO ×2 (08:59→21:56)
[2023-08-20] MEDS: DULoxetine HCl 60 MG CAPSULE.DR PO (08:59)
[2023-08-20] MEDS: Gabapentin 400 MG CAPSULE 800 MG PO ×3 (08:59→21:55)
[2023-08-20] MEDS: Acetaminophen 325 MG TABLET 650 MG PO ×3 (09:00→21:55)
--- NOTE | 2023-08-20 10:12 | P.PNPSI_ITS ---
Subjective Subjective Date of Service: 08/20/23 Reason For Visit: SI Subjective Notes: Conditional Voluntary Interim History: Pt reports sleeping well and denied having nightmares. He reports pain in better control. He reports he has been calling places for CSS. He denies VH/AH- no signs of psychosis or delusions. Pt has been visible on the unit, social with select peers. No behavioral concerns. He does ask if prazosin can be increased. Diagnostics Vital Signs (24Hr): Vital Signs - 24 hr 08/19/23 14:54 08/19/23 21:45 08/20/23 07:50 Temperature 97.2 F 98.0 F 97.1 F Pulse Rate 74 88 78 Respiratory Rate 16 18 18 Blood Pressure 119/65 111/68 113/65 Pulse Oximetry 97 98 99 Oxygen Delivery Method Room Air Room Air Room Air BMI result Body Mass Index 28.6 Labs 08/15/23 08:09 Medications Medications Current Medications Acamprosate (Acamprosate Calcium 333 Mg Tablet.) 666 mg PO TID [facility] Last Admin: 08/20/23 08:57 Dose: 666 mg Acetaminophen (Acetaminophen 325 Mg Tablet) 650 mg PO TID [facility] Last Admin: 08/20/23 09:00 Dose: 650 mg Al Hydroxide/Mg Hydroxide (Magnesium Hydrox/Alum Hydrox 30 Ml Oral.Susp) 30 ml PO Q6H PRN PRN Reason: Heartburn/Nausea Albuterol Sulfate (Albuterol Sulfate 90 Mcg 8 Gm Inhaler) 2 puff INHALE RQ6H PRN PRN Reason: Shortness of Breath/Wheezing Capsaicin (Capsaicin 0.025% Cream 60 Gm Tube) 1 appl TOPICAL QID PRN; Protocol PRN Reason: Pain, Moderate(Pain Scale 4-6) Last Admin: 08/19/23 21:44 Dose: 1 appl Celecoxib (Celecoxib 100 Mg Capsule) 100 mg PO BID [facility] Last Admin: 08/20/23 08:59 Dose: 100 mg Duloxetine HCl (Duloxetine Hcl 60 Mg Capsule.) 60 mg PO DAILY [facility] Last Admin: 08/20/23 08:59 Dose: 60 mg Gabapentin (Gabapentin 400 Mg Capsule) 800 mg PO TID [facility] Last Admin: 08/20/23 08:59 Dose: 800 mg Hydroxyzine HCl (Hydroxyzine Hcl 50 Mg Tablet) 50 mg PO QID PRN PRN Reason: Anxiety Last Admin: 08/19/23 18:58 Dose: 50 mg Lidocaine (Lidocaine 4 % Patch Adh..Patch) 1 patch TRANSDERMA DAILY [facility]; Protocol Last Admin: 08/19/23 11:55 Dose: 1 patch Magnesium Hydroxide (Milk Of Magnesia 30 Ml Oral.Susp) 30 ml PO DAILY PRN PRN Reason: Constipation Naltrexone HCl (Naltrexone Hcl 50 Mg Tablet) 50 mg PO DAILY [facility] Last Admin: 08/20/23 08:58 Dose: 50 mg Nicotine (Nicotine 14 Mg Patch.Td24) 14 mg TRANSDERMA DAILY PRN PRN Reason: nicotine cravings Nicotine Polacrilex (Nicotine Polacrilex 2 Mg Gum) 2 mg BUCCAL Q2H PRN PRN Reason: Nicotine Cravings Omeprazole (Omeprazole 20 Mg Capsule.Dr) 20 mg PO DAILY@0700 [facility] Last Admin: 08/20/23 07:04 Dose: 20 mg Prazosin HCl (Prazosin Hcl 1 Mg Capsule) 1 mg PO BEDTIME [facility]; Protocol Last Admin: 08/19/23 21:47 Dose: 1 mg Prazosin HCl (Prazosin Hcl 1 Mg Capsule) 2 mg PO DAILY [facility]; Protocol Last Admin: 08/20/23 08:58 Dose: 2 mg Thiamine HCl (Thiamine Hcl 100 Mg Tablet) 100 mg PO DAILY [facility] Last Admin: 08/20/23 08:58 Dose: 100 mg Tizanidine HCl (Tizanidine Hcl 4 Mg Tablet) 2 mg PO Q12H PRN PRN Reason: muscle spasm Last Admin: 08/17/23 21:34 Dose: 2 mg Trazodone HCl (Trazodone Hcl 50 Mg Tablet) 50 mg PO BEDTIME PRN PRN Reason: Insomnia Trazodone HCl (Trazodone Hcl 100 Mg Tablet) 100 mg PO BEDTIME [facility] Last Admin: 08/19/23 21:48 Dose: 100 mg Allergies Allergies Allergy/AdvReac Type Severity Reaction Status Date / Time No Known Allergies Allergy Verified 08/14/23 09:26 Assessment & Plan Assessment & Plan (1) MDD (major depressive disorder), recurrent episode, moderate: Status: Acute Code(s): F33.1 - Major depressive disorder, recurrent, moderate (2) Alcohol use disorder, moderate, dependence: Status: Acute Code(s): F10.20 - Alcohol dependence, uncomplicated Plan Mr. Metzger is a 52 year-old male w/ hx of MDD, alcohol use disorder exacerbated by multiple psychosocial stressors including lack of stable housing and financial stress. PLAN 08/20/2023- increase prazosin to 4mg po qhs continue AM dose. Reason for continued inpatient stay Substantial Risk for: inability to function Time Spent With Patient Time: Total time managing care of this patient today ____ minutes.
[2023-08-20] MEDS: Lidocaine 4 % Patch ADH..PATCH 1 PATCH TRANSDERMA (16:48)
[2023-08-20] MEDS: Capsaicin 0.025% Cream 60 GM TUBE 1 APPL TOPICAL (16:49)
[2023-08-20] MEDS: traZODone HCL 100 MG TABLET PO (21:54)
[2023-08-20] MEDS: Prazosin HCL 1 MG CAPSULE PO (21:56)
[2023-08-20 22:02] VITALS: BP 134/77; PULSE 72; RESP 16; TEMP 35.9; O2SAT 99
[2023-08-21 07:40] VITALS: BP 107/57; PULSE 84; RESP 16; TEMP 35.9; O2SAT 98
[2023-08-21] MEDS: Omeprazole 20 MG CAPSULE.DR PO (07:42)
[2023-08-21] MEDS: Acamprosate Calcium 333 MG TABLET.DR 666 MG PO ×3 (08:26→21:09)
[2023-08-21] MEDS: Thiamine HCL 100 MG TABLET PO (08:26)
[2023-08-21] MEDS: DULoxetine HCl 60 MG CAPSULE.DR PO (08:26)
[2023-08-21] MEDS: Prazosin HCL 1 MG CAPSULE 2 MG PO (08:26)
[2023-08-21] MEDS: Acetaminophen 325 MG TABLET 650 MG PO ×3 (08:26→21:10)
[2023-08-21] MEDS: Naltrexone HCl 50 MG TABLET PO (08:26)
[2023-08-21] MEDS: Celecoxib 100 MG CAPSULE PO ×2 (08:26→21:10)
[2023-08-21] MEDS: Gabapentin 400 MG CAPSULE 800 MG PO (08:27)
[2023-08-21] MEDS: Lidocaine 4 % Patch ADH..PATCH 1 PATCH TRANSDERMA (09:45)
[2023-08-21 18:00] VITALS: BP 120/74; PULSE 85; TEMP 36.1; O2SAT 98
--- NOTE | 2023-08-21 18:17 | HO.PSYCHPN ---
Subjective Subjective Date of Service: 08/21/23 Reason For Visit: SI Interim History: calm, cooperative. much psychoeducation and pharmacology education today. mood OK, no SI. pain remains. agreeable to increase gabapentin to 900 TID for pain. slept 5-6 hours last night, no nightmares but does report awakening with jerks and hyper-arousal. agreeable to increase HS prazosin to 2 mg. per staff, visible. attending groups. c/o alcohol withdrawal, no tremors. Mental Status Exam Mental Status Exam Narrative: Appearance: wearing street clothes, fair hygiene, in NAD Behavior: cooperative Psychomotor: no agitation or retardation noted Speech: clear, normal rate/rhythm/volume, spontaneous TP: linear TC: feeling better Mood: OK Affect: congruent, brightens at times SI: denies HI: none expressed VH/AH: none expressed Insight/judgment: fair x 2 Memory/cog: alert, oriented x 3. grossly intact to conversational testing. Diagnostics Vital Signs (24Hr): Vital Signs - 24 hr 08/20/23 22:02 08/21/23 07:40 Temperature 96.7 F L 96.6 F L Pulse Rate 72 84 Respiratory Rate 16 16 Blood Pressure 134/77 107/57 L Pulse Oximetry 99 98 Oxygen Delivery Method Room Air BMI result Body Mass Index 28.6 Labs 08/15/23 08:09 Medications Medications Current Medications Acamprosate (Acamprosate Calcium 333 Mg Tablet.) 666 mg PO TID [facility] Last Admin: 08/21/23 15:06 Dose: 666 mg Acetaminophen (Acetaminophen 325 Mg Tablet) 650 mg PO TID [facility] Last Admin: 08/21/23 15:06 Dose: 650 mg Al Hydroxide/Mg Hydroxide (Magnesium Hydrox/Alum Hydrox 30 Ml Oral.Susp) 30 ml PO Q6H PRN PRN Reason: Heartburn/Nausea Albuterol Sulfate (Albuterol Sulfate 90 Mcg 8 Gm Inhaler) 2 puff INHALE RQ6H PRN PRN Reason: Shortness of Breath/Wheezing Capsaicin (Capsaicin 0.025% Cream 60 Gm Tube) 1 appl TOPICAL QID PRN; Protocol PRN Reason: Pain, Moderate(Pain Scale 4-6) Last Admin: 08/20/23 16:49 Dose: 1 appl Celecoxib (Celecoxib 100 Mg Capsule) 100 mg PO BID [facility] Last Admin: 08/21/23 08:26 Dose: 100 mg Duloxetine HCl (Duloxetine Hcl 60 Mg Capsule.Dr) 60 mg PO DAILY [facility] Last Admin: 08/21/23 08:26 Dose: 60 mg Gabapentin (Gabapentin 300 Mg Capsule) 900 mg PO TID [facility] Last Admin: 08/21/23 15:06 Dose: 900 mg Hydroxyzine HCl (Hydroxyzine Hcl 50 Mg Tablet) 50 mg PO Q3H PRN PRN Reason: Anxiety Lidocaine (Lidocaine 4 % Patch Adh..Patch) 1 patch TRANSDERMA DAILY [facility]; Protocol Last Admin: 08/21/23 09:45 Dose: 1 patch Magnesium Hydroxide (Milk Of Magnesia 30 Ml Oral.Susp) 30 ml PO DAILY PRN PRN Reason: Constipation Naltrexone HCl (Naltrexone Hcl 50 Mg Tablet) 50 mg PO DAILY [facility] Last Admin: 08/21/23 08:26 Dose: 50 mg Nicotine (Nicotine 14 Mg Patch.Td24) 14 mg TRANSDERMA DAILY PRN PRN Reason: nicotine cravings Nicotine Polacrilex (Nicotine Polacrilex 2 Mg Gum) 2 mg BUCCAL Q2H PRN PRN Reason: Nicotine Cravings Omeprazole (Omeprazole 20 Mg Capsule.Dr) 20 mg PO DAILY@0700 [facility] Last Admin: 08/21/23 07:42 Dose: 20 mg Prazosin HCl (Prazosin Hcl 1 Mg Capsule) 2 mg PO DAILY [facility]; Protocol Last Admin: 08/21/23 08:26 Dose: 2 mg Prazosin HCl (Prazosin Hcl 1 Mg Capsule) 2 mg PO BEDTIME [facility]; Protocol Thiamine HCl (Thiamine Hcl 100 Mg Tablet) 100 mg PO DAILY [facility] Last Admin: 08/21/23 08:26 Dose: 100 mg Tizanidine HCl (Tizanidine Hcl 4 Mg Tablet) 2 mg PO Q12H PRN PRN Reason: muscle spasm Last Admin: 08/17/23 21:34 Dose: 2 mg Trazodone HCl (Trazodone Hcl 50 Mg Tablet) 50 mg PO BEDTIME PRN PRN Reason: Insomnia Trazodone HCl (Trazodone Hcl 100 Mg Tablet) 100 mg PO BEDTIME [facility] Last Admin: 08/20/23 21:54 Dose: 100 mg Allergies Allergies Allergy/AdvReac Type Severity Reaction Status Date / Time No Known Allergies Allergy Verified 08/14/23 09:26 Assessment & Plan Assessment & Plan (1) MDD (major depressive disorder), recurrent episode, moderate: Status: Acute Code(s): F33.1 - Major depressive disorder, recurrent, moderate (2) Alcohol use disorder, moderate, dependence: Status: Acute Code(s): F10.20 - Alcohol dependence, uncomplicated Plan Mr. Metzger is a 52 year-old male w/ hx of MDD, alcohol use disorder exacerbated by multiple psychosocial stressors including lack of stable housing and financial stress. PLAN 08/20/2023- increase prazosin to 4mg po qhs continue AM dose. 08/21: dosing not increased yesterday, was 2 mg daily and 1 mg QHS. dosing increased to 2 mg BID as of today. gabapentin increased to 900 TID today, T/C maxing out dosage at 3600 mg daily in the next several days if present dosing is not very effective. SI resolved, chronic pain remains. Reason for continued inpatient stay Substantial Risk for: inability to function and rapid decompensation Time Spent With Patient Time: Total time managing care of this patient today __35__ minutes.
[2023-08-21] MEDS: traZODone HCL 100 MG TABLET PO (21:10)
[2023-08-22] MEDS: Omeprazole 20 MG CAPSULE.DR PO (06:13)
[2023-08-22] MEDS: Acamprosate Calcium 333 MG TABLET.DR 666 MG PO (07:47)
[2023-08-22] MEDS: Thiamine HCL 100 MG TABLET PO (07:47)
[2023-08-22] MEDS: Acetaminophen 325 MG TABLET 650 MG PO (07:48)
[2023-08-22] MEDS: Celecoxib 100 MG CAPSULE PO (07:48)
[2023-08-22] MEDS: Naltrexone HCl 50 MG TABLET PO (07:48)
[2023-08-22 08:07] VITALS: BP 108/63; PULSE 77; RESP 16; TEMP 36.4; O2SAT 99
[2023-08-22 08:16] VITALS: BMI 30.3
[2023-08-22] MEDS: Lidocaine 4 % Patch ADH..PATCH 1 PATCH TRANSDERMA (10:29)
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
[2023-08-22] MEDS: TiZANidine HCL 4 MG TABLET 2 MG PO (12:09)
== END 2023-08-22 13:30 | DRG 751 ==
PROVIDERS: Social Worker; Admitting Provider Psychiatry & Neurology Psychiatry; Visit Provider Psychiatry & Neurology Psychiatry
DX: F33.1 Major depressive disorder, recurrent, moderate (principal); R45.851 Suicidal ideations; F10.20 Alcohol dependence, uncomplicated; J45.20 Mild intermittent asthma, uncomplicated; Z62.890 Parent-child estrangement NEC; Z59.02 Unsheltered homelessness; Z79.899 Other long term (current) drug therapy
CPT/HCPCS: 36415; 80053; 80061; 82607; 82746; 83036; 84443

== ENCOUNTER → 2023-08-14 08:28 | Outpatient (BNV) | payer OTHER, SELFPAY | PROVIDERS: Admitting Provider Psychiatry & Neurology Psychiatry; Visit Provider Social Worker | DX: F33.1 Major depressive disorder, recurrent, moderate (principal); F10.20 Alcohol dependence, uncomplicated | CPT/HCPCS: 90792; 99231; 99232; 99239 ==

== ENCOUNTER → 2023-08-14 08:28 | Outpatient (BNV) | payer OTHER, SELFPAY | PROVIDERS: Admitting Provider Psychiatry & Neurology Psychiatry; Visit Provider Student in an Organized Health Care Education/Training Program | DX: Z02.2 Encounter for examination for admission to residential institution (principal) | CPT/HCPCS: 99429 ==

== ENCOUNTER 2024-07-15 10:09 | Outpatient (REF) | payer OTHER, SELFPAY ==
--- NOTE | ~2024-07-15 | XR_ITS ---
EXAMINATION: Bilateral knee series CLINICAL INFORMATION: Pain in the right and left knee COMPARISON: None. TECHNIQUE: 3 views of each knee including AP upright FINDINGS: Right knee: The bone and joints appear normal without effusion. Question slight soft tissue prominence anterior to the patella and knee could reflect normal variation or mild edema. Left knee: The bones joints and soft tissues are normal. There is a radiopaque object overlying the distal femur on the lateral projection likely outside of the patient XR/XR knee LT 3V IMPRESSION: Right knee: Question soft tissue prominence anterior to the knee could reflect normal variation or mild edema. Left knee: Unremarkable Electronically signed by: Alvino Gaines MD 07/19/2024 01:41 PM EST RP
--- NOTE | ~2024-07-15 | XR_ITS ---
EXAMINATION: Bilateral knee series CLINICAL INFORMATION: Pain in the right and left knee COMPARISON: None. TECHNIQUE: 3 views of each knee including AP upright FINDINGS: Right knee: The bone and joints appear normal without effusion. Question slight soft tissue prominence anterior to the patella and knee could reflect normal variation or mild edema. Left knee: The bones joints and soft tissues are normal. There is a radiopaque object overlying the distal femur on the lateral projection likely outside of the patient XR/XR knee RT 3V IMPRESSION: Right knee: Question soft tissue prominence anterior to the knee could reflect normal variation or mild edema. Left knee: Unremarkable Electronically signed by: Alvino Gaines MD 07/19/2024 01:41 PM EST RP
== END 2024-07-15 10:10 | disposition home or self-care (01) ==
LOC: HO.HOSX 10:09
PROVIDERS: Visit Provider Orthopaedic Surgery
DX: M25.561 Pain in right knee (principal); M25.562 Pain in left knee; S82.242A Displaced spiral fracture of shaft of left tibia, initial encounter for closed fracture
CPT/HCPCS: 73562; 99202

== ENCOUNTER 2024-07-15 10:14 | Outpatient (AMB) | payer OTHER, SELFPAY ==
--- NOTE | 2024-07-15 10:29 | A.OFFVIS_ITS ---
Vital Signs 07/15/24 10:34 Height 5 ft 10 in Weight 250 lb BMI 35.9 Intake Visit Reasons: Bilateral knee pains and giving way Intake Note: Ned is a 53 year old male who presents with complaints of progressively worsening bilateral knee pains and giving way, left greater than right. He describes his pains as sharp in nature. Most of his left knee pain is along the medial aspect of his knee. He states that his left knee will give out several times per day. Did injure his bilateral knees when he tripped while running through a parking lot several years ago. Since that time his symptoms have gotten worse. He has failed the last 6 weeks of conservative treatment which have consisted of physical therapy exercises, topical creams, Tylenol and anti-inflammatory medicines. Allergies No Known Allergies Allergy (Verified 07/15/24 10:34) Medication List - Last Reconciled 07/15/24 by Dat Osman MD acamprosate 666 mg (2 x 333 mg) PO TID 30 days acetaminophen 650 mg (2 x 325 mg) PO TID 30 days albuterol sulfate 90 mcg/actuation (Ventolin HFA) 2 puffs inhalation Q6H 30 days capsaicin 0.025% 1 appl See Protocol topical QID PRN 30 days celecoxib 100 mg PO BID 30 days duloxetine 60 mg PO DAILY 30 days gabapentin 900 mg (3 x 300 mg) PO TID 30 days hydroxyzine HCl 50 mg PO Q3H PRN 30 days methadone 49 mg PO DAILY naltrexone 50 mg PO DAILY 30 days pantoprazole 40 mg PO BID 30 days prazosin 2 mg See Protocol PO BID 30 days thiamine mononitrate (vit B1) 100 mg PO DAILY 30 days trazodone 100 mg (2 x 50 mg) PO BEDTIME 30 days venlafaxine ER 150 mg PO DAILY [facility] Medical History (Updated 07/17/24 @ 08:54 by Dat Osman MD) Medical clearance for psychiatric admission Chronic lower back pain Osteoarthritis Sciatica Social History (Updated 07/15/24 @ 10:37 by CECE Johnson) Household Members: Significant Other Housing: Homeless Do you presently have visiting nurse or other home services: No Alcohol intake: former Patient Tobacco Use Status: Never used Tobacco e-Cigarette/Vaping Use: Never Used Substance Use Type: Painkillers service: No Sexual orientation: Straight/Heterosexual Physical Exam Vital Signs: BMI result Body Mass Index 35.9 Const Other: Well-nourished well-developed very friendly male awake alert and oriented x3 in no acute distress Extrem Other: Bilateral lower extremity examination shows good capillary refill, no skin lesions noted, normal sensation light touch Bilateral knee examination shows minimal effusions, mild crepitus with range of motion, tenderness along his medial joint lines, positive Leda's test, no instability Results Reviewed Results Reviewed: Standing full weight-bearing x-rays of the patient's bilateral knee show mild diffuse joint space narrowing, no acute bony abnormalities Assessment & Plan Assessment & Plan (1) Tear of medial meniscus of left knee: Code(s): S83.242A - Other tear of medial meniscus, current injury, left knee, initial encounter Category: Medical Plan Mr. Metzger presents with bilateral knee pains and mechanical symptoms, left greater than right, most likely due to tearing of his medial menisci. I will send the patient for an MRI of his left knee for further evaluation. I will see him back once the MRI is completed to discuss the findings and treatment options. Feel free to call me at any time should questions regarding his orthopedic management arise. Thank you very much for asking me to see this very friendly gentleman. I spent 22 minutes in reviewing the patient's records and imaging studies, seeing the patient and documenting in the medical record. Orders: Orders XR knee RT 3V 07/15/24 M25.561 - Pain in right knee XR knee LT 3V 07/15/24 M25.562 - Pain in left knee MR knee LT wo con Today S83.242A - Other tear of medial meniscus, current injury, left knee, initial encounter Medications: Discontinued lidocaine 4% (Lidocaine Pain Relief) Discontinued Reason: Patient no longer taking 1 patch See Protocol transdermal DAILY 30 days 30 ea 0RF tizanidine Discontinued Reason: Patient no longer taking 2 mg PO Q12H 30 days PRN 60 tabs 0RF muscle spasm Coding Level of Care Code New Pt Level 3 (61359) Complex EM visit Add On G2211 Diagnoses Tear of medial meniscus of left knee S83.242A
[2024-07-15 10:34] VITALS: BMI 35.9
== END 2024-07-15 10:50 | disposition home or self-care (01) ==
PROVIDERS: PCP Registered Nurse; Visit Provider Orthopaedic Surgery
DX: S83.242A Other tear of medial meniscus, current injury, left knee, initial encounter (principal)
CPT/HCPCS: 99203; G2211